=== PATIENT | female | born 1970 | race Caucasian/White ===

== ENCOUNTER 2018-07-11 06:54 | Day surgery (SDC) | payer BC ==
[~2018-07-11 06:54] MED LIST: Morphine 4 MG/ML Syringe IVPUSH PRN; Ondansetron 4 MG Tab.DIS PO PRN; Ondansetron 4 MG/2 ML SDV IVPUSH PRN
[2018-07-11] MEDS ORDERED: Bupivacaine Liposome 1.3% 20 ML SDV INJECT ONE (06:55)
[2018-07-11] MEDS ORDERED: fentaNYL 250 MCG/5 ML SDV ONE (07:20)
[2018-07-11] MEDS ORDERED: Midazolam 1 MG/ML 2 ML SDV ONE (07:20)
[2018-07-11] MEDS ORDERED: Propofol 200 MG/20 ML SDV ONE (07:20)
[2018-07-11] MEDS: Lactated Ringers 1,000 ML IV SCH ×3 (07:40→22:02)
--- NOTE | 2018-07-11 07:45 | PCM.PREANE ---
Preanesthetic Assessment - Anesthesia/Transfusion/Family Hx Anesthesia History: Prior Anesthesia Without Reaction Family History of Anesthesia Reaction: No Transfusion History: No Prior Transfusion(s) - Review of Systems General: No Symptoms Pulmonary: No Symptoms Cardiovascular: No Symptoms Gastrointestinal: No Symptoms Neurological: No Symptoms Other: Reports: None - Physical Assessment NPO Status Date: 07/10/18 NPO Status Time: 18:30 O2 Sat by Pulse Oximetry: 96 Respiratory Rate: 13 Vital Signs: Last Vital Signs Temp 98.2 F 07/11/18 07:30 Pulse 55 L 07/11/18 07:30 Resp 13 07/11/18 07:30 BP 106/67 07/11/18 07:30 Pulse Ox 96 07/11/18 07:30 Height: 5 ft 6 in Weight: 92.079 kg Mental Status: Alert & Oriented x3 Airway Class: Mallampati = 1 Dentition: Reports: Normal Dentition ROM/Head Extension: Full Lungs: Clear to Auscultation, Normal Respiratory Effort - Allergies Allergies/Adverse Reactions: Allergies Allergy/AdvReac Type Severity Reaction Status Date / Time No Known Allergies Allergy Verified 07/06/18 11:10 - Blood Blood Available: No - Anesthesia Plan Pre-Op Medication Ordered: None - Acknowledgements Anesthesia Type Planned: General Anesthesia Pt an Appropriate Candidate for the Planned Anesthesia: Yes Alternatives and Risks of Anesthesia Discussed w Pt/Guardian: Yes Pt/Guardian Understands and Agrees with Anesthesia Plan: Yes PreAnesthesia Questionnaire - Past Health History Medical/Surgical History: Denies Medical/Surgical History HEENT History: Reports: Other (See Below) Other HEENT History: wears glasses Respiratory History: Reports: None Gastrointestinal History: Reports: GERD, Other (See Below) Other Gastrointestinal History: diverticulitis with perforation Genitourinary History: Reports: None 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: Musculoskeletal History: Reports: Fracture Other Musculoskeletal History: hx fx arms Endocrine/Metabolic History: Reports: Obesity/BMI 30+ Hematologic History: - Infectious Disease History Infectious Disease History: Reports: Chicken Pox, Measles - Past Surgical History Head Surgeries/Procedures: Reports: None Respiratory Surgical History: Reports: None GI Surgical History: Reports: Appendectomy, Bariatric Procedure, Cholecystectomy , Colon, Other (See Below) Other GI Surgeries/Procedures: bowel surgery (removed 2ft of intestine) for a "hole in my colon", hx gastric sleeve Female Surgical History: Reports: Section, Hysterectomy, Salpingo- Oophorectomy, Tubal Ligation Endocrine Surgical History: Reports: None - SUBSTANCE USE Smoking Status *Q: Never Smoker Recreational Drug Use History: No - HOME MEDS Home Medications: Home Meds Multivitamin [Multi-Vitamin Daily] 1 tab PO DAILY 07/06/18 [History] Omeprazole 20 mg PO ASDIRECTED PRN 07/06/18 [History] - CURRENT (IN HOUSE) MEDS Current Meds: Current Medications Hydrocodone Bitart/Acetaminophen ([place] 325-5 Mg) 1 tab PO Q4H PRN PRN Reason: Pain Bupivacaine HCl/Epinephrine Bitart (Marcaine 0.25%/Epinephrine 1:200,000) 10 ml INJECT ONETIME ONE Stop: 07/11/18 08:01 Bupivacaine Liposome (Exparel) 20 ml INFILT ONETIME ONE Stop: 07/11/18 08:01 Diphenhydramine HCl (Benadryl) 25 mg PO Q6H PRN PRN Reason: Itching Cefazolin Sodium/Dextrose 2 gm (/ Premix) 50 mls @ 100 mls/hr IV ONETIME ONE Stop: 07/11/18 08:29 Lactated Ringer's (Ringers, Lactated) 1,000 mls @ 125 mls/hr IV ASDIRECTED ELVIN Last Admin: 07/11/18 07:40 Dose: 125 mls/hr Ibuprofen (Motrin) 600 mg PO Q6H PRN PRN Reason: Pain (mild 1-3) Morphine Sulfate (Morphine) 1 mg IVPUSH Q2H PRN PRN Reason: Pain (severe 7-10) Ondansetron HCl (Zofran Odt) 4 mg PO Q6H PRN PRN Reason: Nausea/Vomiting Ondansetron HCl (Zofran) 4 mg IVPUSH Q6H PRN PRN Reason: Nausea/Vomiting Discontinued Medications Fentanyl (Sublimaze) Confirm Administered Dose 250 mcg .ROUTE .STK-MED ONE Stop: 07/11/18 07:21 Midazolam HCl (Versed 1 Mg/Ml) Confirm Administered Dose 2 mg .ROUTE .STK-MED ONE Stop: 07/11/18 07:21 Propofol (Diprivan 20 Ml) Confirm Administered Dose 200 mg .ROUTE .STK-MED ONE Stop: 07/11/18 07:21
[2018-07-11] MEDS ORDERED: Bupivacaine 0.25%/EPINEPHrine 1:200,000 10 ML SDV INJECT ONE (08:00)
[2018-07-11] MEDS ORDERED: ceFAZolin 2 GM in Premix Bag 1 BAG IV ONE (08:00)
[2018-07-11] MEDS ORDERED: Bupivacaine Liposome 1.3% 20 ML SDV INFILT ONE (08:00)
[2018-07-11] MEDS ORDERED: Octyl 2-Cyanoacrylate 1 Tube ONE (08:38)
[2018-07-11] MEDS ORDERED: Bupivacaine 25%/EPINEPHrine/PF 30 ML ONE (08:38)
[2018-07-11] MEDS ORDERED: Ibuprofen 600 MG Tab PO PRN (09:00)
[2018-07-11] MEDS ORDERED: ceFAZolin 1 GM Vial ONE (09:41)
[2018-07-11] MEDS ORDERED: Dexamethasone 4 MG/ML 5 ML MDV ONE (09:41)
[2018-07-11] MEDS ORDERED: Sodium Chloride 0.9% 20 ML ONE (09:41)
[2018-07-11] MEDS ORDERED: HYDROmorphone 2 MG/ML Syringe IVPUSH ONE (10:50)
[2018-07-11] MEDS ORDERED: Meperidine PF 25 MG/ML Syringe IVPUSH ONE (10:50)
[2018-07-11] MEDS ORDERED: Glycopyrrolate 0.2 MG/ML SDV ONE (10:50)
[2018-07-11] MEDS ORDERED: Promethazine 25 MG/ML SDV IM ONE (10:50)
[2018-07-11] MEDS ORDERED: Neostigmine Methylsulfate 1 MG/ML 5 ML Syringe ONE (10:50)
[2018-07-11] MEDS ORDERED: fentaNYL 100 MCG/2 ML SDV IVPUSH PRN (10:50)
--- NOTE | 2018-07-11 12:18 | PCM.POSTAN ---
POST ANESTHESIA ASSESSMENT - MENTAL STATUS Mental Status: Alert, Oriented - RESPIRATORY Respiratory Status: Respiratory Rate WNL, Airway Patent, O2 Saturation Stable - CARDIOVASCULAR CV Status: Pulse Rate WNL, Blood Pressure Stable - GASTROINTESTINAL GI Status: No Symptoms - PAIN Pain Score: 4 - POST OP HYDRATION Hydration Status: Adequate & Stable
[2018-07-11] MEDS: Acetaminophen/HYDROcodone 325-5 MG Tab PO PRN ×3 (14:42→23:17)
[2018-07-11] MEDS ORDERED: diphenhydrAMINE 25 MG Cap PO PRN (16:20)
[2018-07-11] MEDS: Cephalexin 500 MG Cap PO SCH ×2 (18:11→23:17)
[2018-07-11] MEDS: Omeprazole 20 MG Cap.CR PO SCH (20:20)
[2018-07-11] MEDS: Calcium Carbonate 500 MG Tab.Chew PO PRN (22:01)
[2018-07-12] MEDS: Cephalexin 500 MG Cap PO SCH ×3 (05:10→18:27)
[2018-07-12] MEDS: Acetaminophen/HYDROcodone 325-5 MG Tab PO PRN ×2 (10:41→15:00)
[2018-07-12] MEDS: Calcium Carbonate 500 MG Tab.Chew PO PRN ×2 (10:45→15:03)
[2018-07-12 13:33] VITALS: BP 96/62
[2018-07-12] MEDS ORDERED: Omeprazole 20 MG Cap.CR PO ONE (14:15)
[2018-07-12] MEDS: Omeprazole 20 MG Cap.CR PO SCH (14:16)
--- NOTE | 2018-07-12 17:14 | PCM.OPNOTE ---
- General Post-Op/Procedure Note Date of Surgery/Procedure: 07/11/18 Operative Procedure(s): panniculectomy with umbilicoplasty Pre Op Diagnosis: abdominal pannus Post-Op Diagnosis: Same Anesthesia Technique: General ET Tube, Local Primary Surgeon: Natalie Harding Harness Worker: Britt Allen Complications: None Condition: Good Free Text/Narrative:: Intake & Output 07/12/18 07/12/18 07/12/18 07:59 15:59 23:59 Intake Total 2086 Output Total 1245 Balance 841
--- NOTE | 2018-07-12 17:18 | PCM.PN ---
- General Info Date of Service: 07/12/18 Admission Dx/Problem (Free Text): Doing very well. No signs of compromise and feeling well with the pain medications. Learning the drains. Still using some assistance with ADL's but otherwise no issues. Functional Status: Reports: Pain Controlled, Tolerating Diet, Ambulating. Denies: New Symptoms - Review of Systems General: Reports: No Symptoms HEENT: Reports: No Symptoms Pulmonary: Reports: No Symptoms Gastrointestinal: Reports: No Symptoms Skin: Denies: Rash Neurological: Reports: No Symptoms Psychiatric: Reports: No Symptoms - Patient Data Vitals - Most Recent: Last Vital Signs Temp 98.7 F 07/12/18 12:00 Pulse 62 07/12/18 12:00 Resp 16 07/12/18 12:00 BP 96/62 07/12/18 12:00 Pulse Ox 96 07/12/18 12:00 Weight - Most Recent: 204 lb I&O - Last 24 Hours: Intake & Output 07/12/18 07/12/18 07/12/18 07:59 15:59 23:59 Intake Total 2086 Output Total 1245 Balance 841 Med Orders - Current: Current Medications Hydrocodone Bitart/Acetaminophen ([place] 325-5 Mg) 1 tab PO Q4H PRN PRN Reason: Pain Last Admin: 07/12/18 15:00 Dose: 2 tab Calcium Carbonate/Glycine (Tums) 1,000 mg PO Q4HR PRN PRN Reason: Indigestion Last Admin: 07/12/18 15:03 Dose: 1,000 mg Cephalexin (Keflex) 500 mg PO Q6HR ELVIN Last Admin: 07/12/18 12:32 Dose: 500 mg Diphenhydramine HCl (Benadryl) 25 mg PO Q6H PRN PRN Reason: Itching Lactated Ringer's (Ringers, Lactated) 1,000 mls @ 125 mls/hr IV ASDIRECTED ELVIN Last Admin: 07/11/18 22:02 Dose: 125 mls/hr Ibuprofen (Motrin) 600 mg PO Q6H PRN PRN Reason: Pain (mild 1-3) Last Admin: 07/12/18 05:10 Dose: 600 mg Morphine Sulfate (Morphine) 1 mg IVPUSH Q2H PRN PRN Reason: Pain (severe 7-10) Omeprazole (Omeprazole) 20 mg PO BEDTIME ELVIN Last Admin: 07/12/18 14:16 Dose: 20 mg Ondansetron HCl (Zofran Odt) 4 mg PO Q6H PRN PRN Reason: Nausea/Vomiting Last Admin: 07/11/18 23:22 Dose: 4 mg Ondansetron HCl (Zofran) 4 mg IVPUSH Q6H PRN PRN Reason: Nausea/Vomiting Discontinued Medications Bupivacaine HCl/Epinephrine Bitart (Marcaine 0.25%/Epinephrine 1:200,000) 10 ml INJECT ONETIME ONE Stop: 07/11/18 08:01 Last Admin: 07/11/18 15:34 Dose: Not Given Bupivacaine Liposome (Exparel) 20 ml INFILT ONETIME ONE Stop: 07/11/18 08:01 Last Admin: 07/11/18 15:34 Dose: Not Given Bupivacaine Liposome (Exparel) 0 ml INJECT .STK-MED ONE Stop: 07/11/18 06:56 Cefazolin Sodium (Ancef) Confirm Administered Dose 2 gm .ROUTE .STK-MED ONE Stop: 07/11/18 09:42 Dexamethasone (Dexamethasone) Confirm Administered Dose 20 mg .ROUTE .STK-MED ONE Stop: 07/11/18 09:42 Fentanyl (Sublimaze) Confirm Administered Dose 250 mcg .ROUTE .STK-MED ONE Stop: 07/11/18 07:21 Fentanyl (Sublimaze) 50 mcg IVPUSH Q5M PRN PRN Reason: Pain (severe 7-10) Stop: 07/12/18 10:50 Glycopyrrolate (Robinul) Confirm Administered Dose 0.4 mg .ROUTE .STK-MED ONE Stop: 07/11/18 10:51 Hydromorphone HCl (Dilaudid) 2 mg IVPUSH ONETIME ONE Stop: 07/11/18 10:51 Last Admin: 07/11/18 11:48 Dose: 2 mg Cefazolin Sodium/Dextrose 2 gm (/ Premix) 50 mls @ 100 mls/hr IV ONETIME ONE Stop: 07/11/18 08:29 Last Admin: 07/11/18 15:34 Dose: Not Given Bupivacaine HCl/Epinephrine Bitart (Sensorc Mpf 0.25%-Epi [id number]) Confirm Administered Dose 30 mls @ as directed .ROUTE .STK-MED ONE Stop: 07/11/18 08:39 Sodium Chloride (Normal Saline) Confirm Administered Dose 20 mls @ as directed .ROUTE .STK-MED ONE Stop: 07/11/18 09:42 Acetaminophen (Ofirmev) 100 mls @ as directed IV .STK-MED ONE Stop: 07/11/18 10:50 Meperidine HCl (Demerol) 12.5 mg IVPUSH ONETIME ONE Stop: 07/11/18 10:51 Last Admin: 07/11/18 15:34 Dose: Not Given Midazolam HCl (Versed 1 Mg/Ml) Confirm Administered Dose 2 mg .ROUTE .STK-MED ONE Stop: 07/11/18 07:21 Neostigmine Methylsulfate (Neostigmine) Confirm Administered Dose 5 mg .ROUTE .STK-MED ONE Stop: 07/11/18 10:51 Octyl Cyanoacrylate (Dermabond Advance) Confirm Administered Dose 1 applic .ROUTE .[facility]-MED ONE Stop: 07/11/18 08:39 Omeprazole (Omeprazole) 20 mg PO NOW ONE Stop: 07/12/18 14:16 Last Admin: 07/12/18 16:18 Dose: Not Given Promethazine HCl (Phenergan) 12.5 mg IM ONETIME ONE Stop: 07/11/18 10:51 Last Admin: 07/11/18 15:35 Dose: Not Given Propofol (Diprivan 20 Ml) Confirm Administered Dose 200 mg .ROUTE .ST-MED ONE Stop: 07/11/18 07:21 - Exam General: Alert, Oriented, Cooperative HEENT: Pupils Equal Lungs: Normal Respiratory Effort Back Exam: Normal Inspection Skin: Warm, Dry Wound/Incisions: Dressing Dry and Intact Neurological: No New Focal Deficit Psy/Mental Status: Alert, Normal Affect, Normal Mood - Problem List & Annotations (1) S/P panniculectomy SNOMED Code(s): 178767740, 321143556, 164416376 Code(s): Z98.890 - OTHER SPECIFIED POSTPROCEDURAL STATES Status: Acute Current Visit: Yes - Problem List Review Problem List Initiated/Reviewed/Updated: Yes - My Orders Last 24 Hours: My Active Orders 07/11/18 16:20 diphenhydrAMINE [Benadryl] 25 mg PO Q6H PRN 07/11/18 19:57 Calcium Carbonate [Tums] 1,000 mg PO Q4HR PRN 07/11/18 21:00 Omeprazole 20 mg PO BEDTIME 07/11/18 21:43 Communication Order [RC] ROUTINE - Plan Plan:: we will plan home tonight. Some issues with obtaining meds and they will be able to send her with medications to get through the night. Vasquez and jono to go home. Follow up Monday in clinic, sooner with any issues or concerns. Saray will call Monday with appointment time. 10lb weight limit and binder at all times.
[2018-07-12] MEDS ORDERED: Acetaminophen/HYDROcodone 325-5 MG Tab PO PRN (17:19)
[2018-07-12] MEDS ORDERED: Cephalexin 500 MG Cap PO SCH (18:00)
--- NOTE | 2018-07-16 23:49 | OR ---
SURGEON: BENJI BECKWITH MD DATE OF PROCEDURE: 07/11/2018 PREOPERATIVE DIAGNOSIS: Abdominal pannus with significant compromise of function. POSTOPERATIVE DIAGNOSIS: Abdominal pannus with significant compromise of function. PROCEDURE: Panniculectomy with umbilicoplasty. PROFESSOR OF MUSICOLOGY: LUZ Silva. REASON FOR AND ROLE OF PROFESSOR OF MUSICOLOGY: Retraction, prepping, draping, positioning and closure assistance. ANESTHESIA: General ET tube with local. INDICATIONS: Ms. Lerma is a 48-year-old female seen today in evaluation for a large abdominal pannus. She has significant symptoms associated with it and prior authorization was obtained from the insurance [employer]. Risks and benefits were discussed with her including, but not limited to, bleeding, infection, damage to underlying or overlying structures, possible need for future interventions, possible scarring. PROCEDURE IN DETAIL: After informed consent was obtained and placed on the chart, the patient was brought to the operating theater and laid in supine position. After adequate general anesthesia was obtained, the area was prepped and draped and a time-out was completed to confirm side and site. Markings were then appreciated to the lateral fold and symmetrically marked to just above the umbilicus. The inferior incision was made in a low-transverse fashion with some care taken to excise the mons. Once adequately marked and appreciated that this could be excised appropriately, the inferior incision was made and dissection was carried down to the abdominal fascia. There was a significant amount of scar tissue right over the previous transverse low incision. This was easily freed. No hernias were appreciated. Dissection was carried up to the umbilicus until the umbilicus itself was isolated and circumferentially dissected. Once dissected around this, dissection was then carried up to the xiphoid process. Once the abdominal flap had been elevated, meticulous hemostasis was obtained and the area was copiously irrigated. After meticulous hemostasis, a 0 Ethibond suture was used in the midline to reapproximate the muscle itself. Once the rectus plication was completed, attention was then paid to the inferior mons. PDS and Ethibond sutures were then used to tack up the pubic mons to the pubic bone itself. Once adequately secured here, attention was then paid to plication stitches using a 2- 0 PDS suture in a running fashion to plicate the lateral rectus to the skin flap itself. This was done in a running fashion. Once adequately completed and the skin flaps had been redraped, the excess skin was removed and measured for a total of nearly 6 to 7 pounds. This was sent for disposal. Once adequately excised and the plication stitches had been placed bilaterally, deep skin was then reapproximated first using a deep 2-0 PDS Stratafix suture for the fascia and a running 3-0 PDS suture to the dermis, and a running 4-0 PDS suture for the skin. Prior to closure, two size-7 ROBERT drains were laid in the inferior transverse area and secured in place using 3-0 Prolene stitch at the lateral aspect. Once the skin was closed, the wound was dressed with Steri- Strips and Xeroform at the lateral aspect of the drain sites. Attention was then paid to isolation of the umbilicus and a V-shaped incision was made in the lower abdomen at the appropriate measured spot and the umbilicus was brought through. Once it was brought through, it was trimmed appropriately and sutured in place using a deep 4-0 Monocryl stitch and a running 4-0 subcuticular for the skin surrounding. It was dressed with Dermabond and a Tegaderm border. The patient tolerated the procedure well and all counts and needles were correct at the end of the case. Calvo was removed at the end of the case and the patient was then placed with fluffs, minimal amount of tape, and an abdominal binder. The patient tolerated this well. All counts and needles were correct at the end of the case. Exparel was used for pain control as well as bupivacaine. The patient tolerated this well. FOLLOWUP INSTRUCTIONS: The patient will be maintained in the hospital for pain control and we will re- evaluate in the morning for discharge. SALOMON / DOREEN /[id number]
== END 2018-07-12 18:00 | disposition home or self-care (01) ==
LOC: MW.SDS 06:54 → MW.MS 12:44 → MW.SDS 07-12 18:00
PROVIDERS: ATTEND Plastic Surgery
DX: E65 Localized adiposity (principal); K21.9 Gastro-esophageal reflux disease without esophagitis; K57.20 Diverticulitis of large intestine with perforation and abscess without bleeding; E66.9 Obesity, unspecified; Z79.899 Other long term (current) drug therapy; Z68.32 Body mass index [BMI] 32.0-32.9, adult
CPT/HCPCS: 15830; 15847; A9270; J0131; J0690; J1100; J1170; J2250; J2704; J3010; J3490; J7120; 00802

== ENCOUNTER 2021-05-18 06:25 | Emergency (ER) | payer SELFPAY ==
--- NOTE | 2021-05-18 06:33 | EDM.PDOC ---
<RafiraBaldev moura Tye - Last Filed: 05/18/21 06:45> ED HPI GENERAL MEDICAL PROBLEM - General Chief Complaint: Respiratory Problem Stated Complaint: CLAMMY/SWEATY, BACK HURTS, THINKS PNEUMONIA Time Seen by Provider: 05/18/21 06:40 Source of Information: Reports: Patient History Limitations: Reports: No Limitations - History of Present Illness INITIAL COMMENTS - FREE TEXT/NARRATIVE: 50-year-old female past medical history reactive airway disease presents for Covid-like symptoms. Patient notes for about the last week she has had upper back pain, mild cough, feeling generalized weakness and under the weather. She has had a lack of appetite and notes decreased hydration. She has subjective fever and had bad night sweats last night and this morning. She states that she has had pneumonia in the past and this feels similar. She feels mild shortness of breath. Lower Back Pain Score (Numeric/FACES): 6 - Related Data Allergies Allergy/AdvReac Type Severity Reaction Status Date / Time No Known Allergies Allergy Verified 05/18/21 06:34 Home Meds: Home Meds Multivitamin [Multi-Vitamin Daily] 1 tab PO DAILY 07/06/18 [History] Past Medical History - Past Health History Medical/Surgical History: Denies Medical/Surgical History HEENT History: Reports: Other (See Below) Other HEENT History: wears glasses Respiratory History: Reports: None Gastrointestinal History: Reports: GERD, Other (See Below) Other Gastrointestinal History: diverticulitis with perforation Genitourinary History: Reports: None 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: Musculoskeletal History: Reports: Fracture Other Musculoskeletal History: hx fx arms Endocrine/Metabolic History: Reports: Obesity/BMI 30+ Hematologic History: - Infectious Disease History Infectious Disease History: Reports: Chicken Pox, Measles - Past Surgical History Head Surgeries/Procedures: Reports: None Respiratory Surgical History: Reports: None GI Surgical History: Reports: Appendectomy, Bariatric Procedure, Cholecystectomy, Colon, Other (See Below) Other GI Surgeries/Procedures: bowel surgery (removed 2ft of intestine) for a "hole in my colon", hx gastric sleeve Female Surgical History: Reports: Section, Hysterectomy, Salpingo- Oophorectomy, Tubal Ligation Endocrine Surgical History: Reports: None Social & Family History - Family History Family Medical History: No Pertinent Family History Cardiac: Reports: [place] Neurological: Reports: CVA - Caffeine Use Caffeine Use: Reports: None ED ROS GENERAL - Review of Systems Review Of Systems: Comprehensive ROS is negative, except as noted in HPI. ED EXAM, GENERAL - Physical Exam Exam: See Below Exam Limited By: No Limitations General Appearance: Alert, WD/WN, No Apparent Distress Ears: Hearing Grossly Normal Throat/Mouth: Normal Oropharynx Head: Atraumatic, Normocephalic Respiratory/Chest: No Respiratory Distress, Lungs Clear, Normal Breath Sounds, No Accessory Muscle Use Cardiovascular: Normal Peripheral Pulses, Regular Rate, Rhythm Back Exam: Normal Inspection Extremities: Normal Inspection Neurological: Alert, Normal Cognition, Normal Gait Psychiatric: Normal Affect, Normal Mood Skin Exam: Warm, Dry, Intact, Normal Color Course - Re-Assessments/Exams Free Text/Narrative Re-Assessment/Exam: 05/18/21 06:46 We will get labs, chest x-ray, Covid and influenza testing. Will give IV fluid hydration. Departure - Departure Disposition: Home, Self-Care 01 Clinical Impression: COVID-19 virus infection - Discharge Information Instructions: COVID-19 Vaccine Information, COVID-19: What to Do If You Are Sick- [facility] (08/05/2020), COVID-19: Quarantine vs. Isolation - [facility] (05/07/2020) Referrals: PCP,None [Primary Care Provider] - Forms: ED Department Discharge Additional Instructions: Your blood pressure was low but it responded to fluids so you must be dehydrated. Pain attention. Drink plenty. [facility] - Primary Care [address] [place] [address] [place] [address] The following information is given to patients seen in the emergency department who are being discharged to home. This information is to outline your options for follow-up care. We provide all patients seen in our emergency department with a follow-up referral. The need for follow-up, as well as the timing and circumstances, are variable depending upon the specifics of your emergency department visit. If you don't have a primary care physician on staff, we will provide you with a referral. We always advise you to contact your personal physician following an emergency department visit to inform them of the circumstance of the visit and for follow-up with them and/or the need for any referrals to a consulting specialist. The emergency department will also refer you to a specialist when appropriate. This referral assures that you have the opportunity for follow-up care with a specialist. All of these measure are taken in an effort to provide you with optimal care, which includes your follow-up. Under all circumstances we always encourage you to contact your private physician who remains a resource for coordinating your care. When calling for f ollow-up care, please make the office aware that this follow-up is from your recent emergency room visit. If for any reason you are refused follow-up, please contact the [facility] Emergency Department at and asked to speak to the emergency department charge nurse. <Rodger Farfan - Last Filed: 05/18/21 07:59> #1 Interpretation EKG Interpretation Comments: EKG done on 05/18/2021 at 7:12 AM shows sinus rhythm heart rate 69 MO 169 QT 411 axis -[address] and T. Impression normal Course - Vital Signs Last Recorded V/S: Last Vital Signs Temp 36.8 C 05/18/21 07:52 Pulse 66 05/18/21 07:52 Resp 16 05/18/21 07:52 BP 100/66 05/18/21 07:52 Pulse Ox 96 05/18/21 07:52 - Orders/Labs/Meds Orders: Active Orders 24 hr Category Date Time Status Saline Lock Insert [OM.PC] Stat Oth 05/18/21 06:46 Ordered Labs: Laboratory Tests 05/18/21 05/18/21 05/18/21 Range/Units 06:35 07:00 07:07 WBC 4.61 (4.0-11.0) K/uL RBC 5.06 (4.30-5.90) M/uL Hgb 15.0 (12.0-16.0) g/dL Hct 44.1 (36.0-46.0) % MCV 87.2 (80.0-98.0) fL MCH 29.6 (27.0-32.0) pg MCHC 34.0 (31.0-37.0) g/dL RDW Std Deviation 40.5 (28.0-62.0) fl RDW Coeff of Rahat 13 (11.0-15.0) % Plt Count 202 (150-400) K/uL MPV 10.40 (7.40-12.00) fL Neut % (Auto) 67.5 (48.0-80.0) % Lymph % (Auto) 22.6 (16.0-40.0) % [place] % (Auto) 9.5 (0.0-15.0) % Eos % (Auto) 0.2 (0.0-7.0) % Baso % (Auto) 0.2 (0.0-1.5) % Neut # (Auto) 3.1 (1.4-5.7) K/uL Lymph # (Auto) 1.0 (0.6-2.4) K/uL [place] # (Auto) 0.4 (0.0-0.8) K/uL Eos # (Auto) 0.0 (0.0-0.7) K/uL Baso # (Auto) 0.0 (0.0-0.1) K/uL Nucleated RBC % 0.0 /100WBC Nucleated RBCs # 0 K/uL Sodium (136-145) mmol/L Potassium (3.5-5.1) mmol/L Chloride (98-107) mmol/L Carbon Dioxide (21.0-32.0) mmol/L BUN (7.0-18.0) mg/dL Creatinine (0.6-1.0) mg/dL Est Cr Clr Drug Dosing mL/min Estimated GFR (MDRD) ml/min Glucose (74-106) mg/dL Lactic Acid (0.4-2.0) mmol/L Calcium (8.5-10.1) mg/dL Magnesium (1.8-2.4) mg/dL Total Bilirubin (0.2-1.0) mg/dL AST (15-37) IU/L ALT (14-63) IU/L Alkaline Phosphatase (46-116) U/L Troponin I (0.000-0.056) ng/mL C-Reactive Protein (0.00-0.90) mg/dL Total Protein (6.4-8.2) g/dL Albumin (3.4-5.0) g/dL Globulin (2.6-4.0) g/dL Albumin/Globulin Ratio (0.9-1.6) Urine Color YELLOW Urine Appearance SLT CLOUDY Urine pH 6.0 (5.0-8.0) Ur Specific [place] 1.015 (1.001-1.035) Urine Protein 100 H (NEGATIVE) mg/dL Urine Glucose (UA) NEGATIVE (NEGATIVE) mg/dL Urine Ketones TRACE H (NEGATIVE) mg/dL Urine Occult Blood MODERATE H (NEGATIVE) Urine Nitrite NEGATIVE (NEGATIVE) Urine Bilirubin SMALL H (NEGATIVE) Urine Urobilinogen 1.0 (<2.0) EU/dL Ur Leukocyte Esterase NEGATIVE (NEGATIVE) Urine RBC 4-5 (0-2/HPF) Urine WBC 0-3 (0-5/HPF) Ur Epithelial Cells MANY (NONE-FEW) Urine Bacteria 2+ H (NEGATIVE) Urine Mucus HEAVY (NONE-MOD) Influenza Type A RNA NEGATIVE (NEGATIVE) Influenza Type B RNA NEGATIVE (NEGATIVE) SARS-CoV-2 RNA (JAYY) POSITIVE H (NEGATIVE) 05/18/21 05/18/21 Range/Units 07:07 07:23 WBC (4.0-11.0) K/uL RBC (4.30-5.90) M/uL Hgb (12.0-16.0) g/dL Hct (36.0-46.0) % MCV (80.0-98.0) fL MCH (27.0-32.0) pg MCHC (31.0-37.0) g/dL RDW Std Deviation (28.0-62.0) fl RDW Coeff of Rahat (11.0-15.0) % Plt Count (150-400) K/uL MPV (7.40-12.00) fL Neut % (Auto) (48.0-80.0) % Lymph % (Auto) (16.0-40.0) % [place] % (Auto) (0.0-15.0) % Eos % (Auto) (0.0-7.0) % Baso % (Auto) (0.0-1.5) % Neut # (Auto) (1.4-5.7) K/uL Lymph # (Auto) (0.6-2.4) K/uL [place] # (Auto) (0.0-0.8) K/uL Eos # (Auto) (0.0-0.7) K/uL Baso # (Auto) (0.0-0.1) K/uL Nucleated RBC % /100WBC Nucleated RBCs # K/uL Sodium 135 L (136-145) mmol/L Potassium 4.0 (3.5-5.1) mmol/L Chloride 98 (98-107) mmol/L Carbon Dioxide 30.4 (21.0-32.0) mmol/L BUN 11 (7.0-18.0) mg/dL Creatinine 1.0 (0.6-1.0) mg/dL Est Cr Clr Drug Dosing 61.91 mL/min Estimated GFR (MDRD) 59.2 ml/min Glucose 108 H (74-106) mg/dL Lactic Acid 0.5 (0.4-2.0) mmol/L Calcium 9.1 (8.5-10.1) mg/dL Magnesium 1.9 (1.8-2.4) mg/dL Total Bilirubin 0.4 (0.2-1.0) mg/dL AST 35 (15-37) IU/L ALT 34 (14-63) IU/L Alkaline Phosphatase 100 (46-116) U/L Troponin I < 0.050 (0.000-0.056) ng/mL C-Reactive Protein 4.30 H (0.00-0.90) mg/dL Total Protein 7.6 (6.4-8.2) g/dL Albumin 3.7 (3.4-5.0) g/dL Globulin 3.9 (2.6-4.0) g/dL Albumin/Globulin Ratio 0.9 (0.9-1.6) Urine Color Urine Appearance Urine pH (5.0-8.0) Ur Specific [place] (1.001-1.035) Urine Protein (NEGATIVE) mg/dL Urine Glucose (UA) (NEGATIVE) mg/dL Urine Ketones (NEGATIVE) mg/dL Urine Occult Blood (NEGATIVE) Urine Nitrite (NEGATIVE) Urine Bilirubin (NEGATIVE) Urine Urobilinogen (<2.0) EU/dL Ur Leukocyte Esterase (NEGATIVE) Urine RBC (0-2/HPF) Urine WBC (0-5/HPF) Ur Epithelial Cells (NONE-FEW) Urine Bacteria (NEGATIVE) Urine Mucus (NONE-MOD) Influenza Type A RNA (NEGATIVE) Influenza Type B RNA (NEGATIVE) SARS-CoV-2 RNA (JAYY) (NEGATIVE) Meds: Medications Discontinued Medications Generic Name Dose Route Start Last Admin Trade Name Leanne PRN Reason Stop Dose Admin Clonidine HCl 0.2 mg 05/18/21 07:43 Clonidine 0.1 Mg Tab PO 05/18/21 07:44 ONETIME ONE Sodium Chloride 1,000 mls @ 999 mls/hr 05/18/21 06:46 05/18/21 07:04 Normal Saline IV 05/18/21 07:46 999 mls/hr .Bolus ONE Administration - Re-Assessments/Exams Free Text/Narrative Re-Assessment/Exam: 05/18/21 07:47 Patient's Covid 19 test is positive. Patient is a BMI of 33.3 and a history of chronic lung disease with recurrent pneumonia and bronchospasm and asthma. She is also had a gastric sleeve in poorly nourished with blood pressure 91. I explained risks and benefits in the status of monoclonal antibody treatment and she agreed to accept it. Awaiting electrolytes and response to IV therapy for her blood pressure. 05/18/21 07:57 Patient's blood pressure is over 100. She still has 400 of fluid to get. She will be discharged and set up for monoclonal antibodies which she is agreed to take. Departure - Departure Time of Disposition: 08:15 Condition: Good Sepsis Event Note (ED) - Focused Exam Vital Signs: Vital Signs Temp Pulse Resp BP Pulse Ox 05/18/21 07:52 36.8 C 66 16 100/66 96 05/18/21 07:00 66 16 97/64 97 05/18/21 06:30 36.1 C 78 16 109/62 95
[2021-05-18] MEDS ORDERED: Sodium Chloride 0.9% 1,000 ML IV ONE (06:46)
[2021-05-18 07:16] LABS: CORONAVIRUS COVID-19 NAA POSITIVE (NEGATIVE); INFLUENZA A NAA NEGATIVE (NEGATIVE); INFLUENZA B NAA NEGATIVE (NEGATIVE)
--- NOTE | 2021-05-18 07:34 | CR ---
INDICATION: COVID like symptoms COMPARISON: March 16, 2016 TECHNIQUE: Single-view portable chest radiograph FINDINGS: TUBES AND LINES: None. HEART AND MEDIASTINUM: The heart size is normal. The mediastinal contour appears normal for patient age. LUNGS AND PLEURAL SPACES: The lungs appear normal.The pleural spaces are unremarkable. OSSEOUS STRUCTURES: Age-appropriate appearance. No acute focal finding. IMPRESSION: Normal single-view portable chest radiograph. Dictated by Karl Infante MD @ 05/18/2021 7:32:08 AM (Electronically Signed)
[2021-05-18 07:40] LABS: BLOOD UREA NITROGEN,BUN 11 mg/dL (7.0-18.0); CARBON DIOXIDE,CO2 30.4 mmol/L (21.0-32.0); CHLORIDE,CL 98 mmol/L (98-107); GLUCOSE RANDOM 108 mg/dL (74-106); SODIUM,NA 135 mmol/L (136-145)
[2021-05-18] MEDS ORDERED: cloNIDine 0.1 MG Tab PO ONE (07:43)
[2021-05-18 09:26] VITALS: BP 99/65; PULSE 74
== END 2021-05-18 08:47 | disposition home or self-care (01) ==
LOC: MW.ED 06:25
DX: U07.1 COVID-19 (principal); E66.9 Obesity, unspecified; Z68.33 Body mass index [BMI] 33.0-33.9, adult
CPT/HCPCS: 0240U; 36415; 71045; 80053; 81001; 83605; 83735; 84484; 85025; 86140; 99285; J7030

== ENCOUNTER 2022-11-18 07:19 | Day surgery (SDC) | payer BC ==
[~2022-11-18 07:19] MED LIST changes: +Lactated Ringers 1,000 ML IV SCH; -Morphine 4 MG/ML Syringe IVPUSH PRN; -Ondansetron 4 MG Tab.DIS PO PRN; -Ondansetron 4 MG/2 ML SDV IVPUSH PRN
[2022-11-18] MEDS ORDERED: Propofol 200 MG/20 ML SDV ONE ×4 (07:28→09:06)
[2022-11-18] MEDS ORDERED: Lactated Ringers 1,000 ML IV SCH (09:30)
[2022-11-18 09:59] VITALS: BP 150/95; PULSE 53
== END 2022-11-18 09:55 | disposition home or self-care (01) ==
LOC: MW.SDS 07:19
PROVIDERS: ATTEND Surgery
DX: Z12.11 Encounter for screening for malignant neoplasm of colon (principal); K29.50 Unspecified chronic gastritis without bleeding; K31.89 Other diseases of stomach and duodenum; K44.9 Diaphragmatic hernia without obstruction or gangrene; K21.00 Gastro-esophageal reflux disease with esophagitis, without bleeding; F41.8 Other specified anxiety disorders; E55.9 Vitamin D deficiency, unspecified; R73.03 Prediabetes; E66.9 Obesity, unspecified; Z90.49 Acquired absence of other specified parts of digestive tract; Z79.84 Long term (current) use of oral hypoglycemic drugs; Z79.899 Other long term (current) drug therapy; Z98.890 Other specified postprocedural states; Z98.84 Bariatric surgery status; Z77.22 Contact with and (suspected) exposure to environmental tobacco smoke (acute) (chronic); Z88.5 Allergy status to narcotic agent; Z68.38 Body mass index [BMI] 38.0-38.9, adult
CPT/HCPCS: 43239; 45378; J2704; J7120

== ENCOUNTER 2025-04-14 18:01 | Emergency (ER) | payer BC ==
[2025-04-14 19:04] LABS: BASOPHILS ABSOLUTE AUTO 0.05 K/uL (0.00-0.20); BASOPHILS PERCENT AUTO 0.6 % (0.0-1.0); EOSINOPHILS ABSOLUTE AUTO 0.07 K/uL (0.00-0.45); EOSINOPHILS PERCENT AUTO 0.8 % (0.0-6.0); IMMATURE GRAN ABSOLUTE AUTO 0.02 K/uL (0.00-0.05); IMMATURE GRAN PERCENT AUTO 0.2 % (0.0-0.4); LYMPHOCYTES ABSOLUTE AUTO 2.59 K/uL (1.00-4.80); LYMPHOCYTES PERCENT AUTO 29.3 % (24.0-44.0); MEAN PLATELET VOLUME 10.3 fL (9.4-12.3); MONOCYTES ABSOLUTE AUTO 0.64 K/uL (0.00-0.80); MONOCYTES PERCENT AUTO 7.2 % (0.0-8.0); NEUTROPHILS ABSOLUTE AUTO 5.46 K/uL (1.80-7.70); NEUTROPHILS PERCENT AUTO 61.9 % (41.0-71.0); NRBC ABSOLUTE 0.00 K/uL (0.00-0.02); NRBC PERCENT 0.0 /100WBC (0.0-0.2); PLATELET COUNT,PLT 275 K/uL (150-400); RED BLOOD CELL COUNT 4.68 M/uL (4.10-5.30); WHITE BLOOD CELL COUNT,WBC 8.83 K/uL (3.9-11.3)
[2025-04-14 19:21] LABS: A/G RATIO 1.2 (0.9-1.6); ALANINE AMINOTRANSFERASE,ALT 24.0 IU/L (14-63); ASPARTATE AMNIOTRANSFERASE,AST 15.0 IU/L (15-37); BILIRUBIN TOTAL 0.3 mg/dL (0.2-1.0); BLOOD UREA NITROGEN,BUN 23.0 mg/dL (7.0-18.0); CARBON DIOXIDE,CO2 29.4 mmol/L (21.0-32.0); CHLORIDE,CL 102.0 mmol/L (98-107); CREATININE 1.0 mg/dL (0.6-1.0); EST CRCL DRUG DOSING (CG) 59.22 mL/min; GLUCOSE RANDOM 89.0 mg/dL (74-106); POTASSIUM,K 4.0 mmol/L (3.5-5.1); PRO B-TYPE NATRIUR PEPT,BNPPRO 73.0 pg/mL (0-125); PROTEIN TOTAL,TP 7.1 g/dL (6.4-8.2); SODIUM,NA 139.0 mmol/L (136-145)
[2025-04-14 19:23] LABS: ESTIMATED GFR 68.0 mL/min (>60)
[2025-04-14 19:29] LABS: TSH ULTRASENSITIVE 1.93 uIU/mL (0.36-3.74)
[2025-04-14] MEDS: Ketorolac 30 MG/ML SDV IVPUSH ONE (20:12)
[2025-04-14] MEDS: Magnesium Sulfate 2 GM/50 mL 2 GM in Premix Bag 1 BAG IV ONE (20:13)
[2025-04-14 20:53] VITALS: BP 117/77; PULSE 66
== END 2025-04-14 21:18 | disposition home or self-care (01) ==
LOC: MW.ED 18:01
DX: R07.9 Chest pain, unspecified (principal); Z88.5 Allergy status to narcotic agent
CPT/HCPCS: 36415; 71045; 80053; 83690; 83735; 83880; 84443; 84484; 85025; 85379; 93005; 96365; 96375; 99285; A9270; J1885; J3475; 93010; 99284